=== PATIENT | male | born 1940 | race Caucasian/White ===

== ENCOUNTER 2016-12-26 11:30 | Inpatient (IN) | payer MEDICARE ==
[2017-01-07] MEDS ORDERED: ceFAZolin 1 GM in NORMAL SALINE MINI-BAG+ 100 ML IV PRN ×2 (06:25→09:54)
[2017-01-07] MEDS ORDERED: TRANEXAMIC ACID 1,000 MG in NORMAL SALINE 100 ML IV SCH ×2 (06:25→09:54)
[2017-01-07] MEDS ORDERED: LIDOCAINE HCL 1% 20 ML VIAL SUBCUT PRN ×2 (06:26→09:54)
[2017-01-07] MEDS ORDERED: MIDAZOLAM HCL 2 MG/2 ML SYR IV PRN ×2 (06:26→09:54)
[2017-01-07] MEDS ORDERED: FAMOTIDINE IN SALINE, ISO-OSM 20 MG/50 ML PIGGYBACK IV SCH ×2 (06:30→09:54)
[2017-01-07] MEDS ORDERED: LACTATED RINGERS 1,000 ML IV SCH ×3 (07:00→10:00)
[2017-01-07] MEDS ORDERED: NORMAL SALINE MINI-BAG+ 100 ML IV ONE (07:07)
[2017-01-07] MEDS ORDERED: TRANEXAMIC ACID 1,000 MG/10 ML VIAL IV ONE ×2 (07:07→13:00)
[2017-01-07] MEDS ORDERED: MIDAZOLAM HCL 2 MG/2 ML VIAL ONE (07:08)
[2017-01-07] MEDS ORDERED: BACITRACIN 50,000 UNITS VIAL IM ONE (07:14)
[2017-01-07] MEDS ORDERED: BACITRACIN 14 APP/14 GM TUBE TOPICAL ONE (07:14)
[2017-01-07] MEDS ORDERED: NORMAL SALINE FLUSH 20 ML ONE ×2 (07:15→07:21)
[2017-01-07] MEDS ORDERED: FENTANYL 100 MCG/2 ML VIAL ONE (07:16)
[2017-01-07] MEDS ORDERED: LIDOCAINE HCL 1% 20 ML VIAL ONE (07:16)
[2017-01-07] MEDS ORDERED: MORPHINE SULFATE/PF 10 MG/10 ML VIAL ONE (07:16)
[2017-01-07] MEDS ORDERED: TETRACAINE HCL 1% 20 MG/2 ML AMP ONE (07:17)
[2017-01-07] MEDS ORDERED: BUPIVACAINE/EPI 0.25% 1 VIAL VIAL ONE (07:20)
[2017-01-07] MEDS ORDERED: KETOROLAC TROMETHAMINE 30 MG/ML VIAL ONE (07:22)
[2017-01-07] MEDS ORDERED: ROPIVACAINE HCL 0.5% 30 ML ONE (07:22)
[2017-01-07] MEDS ORDERED: NALBUPHINE HCL 10 MG/ML AMP IV PRN ×2 (09:54→12:03)
[2017-01-07] MEDS ORDERED: DIPHENHYDRAMINE 50 MG/ML VIAL IV PRN ×2 (09:54→12:03)
[2017-01-07] MEDS ORDERED: NALOXONE HCL 0.4 MG/ML VIAL IV PRN ×6 (09:54→12:03)
[2017-01-07] MEDS ORDERED: MORPHINE SULFATE 10 MG/ML SYR IV PRN (09:54)
[2017-01-07] MEDS ORDERED: ONDANSETRON HCL 4 MG/2 ML VIAL IV PRN (09:54)
[2017-01-07] MEDS ORDERED: FENTANYL 100 MCG/2 ML VIAL IV PRN (09:54)
[2017-01-07] MEDS ORDERED: DIPHENHYDRAMINE 25 MG CAPSULE PO PRN ×2 (09:54→12:03)
[2017-01-07] MEDS ORDERED: MORPHINE SULFATE 2 MG/ML SYR IV PRN (10:20)
[2017-01-07] MEDS: ceFAZolin 1 GM in NORMAL SALINE MINI-BAG+ 100 ML IV SCH ×3 (11:15→20:10)
[2017-01-07] MEDS ORDERED: NORMAL SALINE FLUSH 10 ML ONE (11:29)
[2017-01-07] MEDS ORDERED: ceFAZolin 1 GM/10 ML VIAL ONE (11:29)
--- NOTE | 2017-01-07 11:51 | PROCEDURE NOTE: Orthopedics ---
Orthopedic Procedure note - Brief Operative Note Date of procedure: 01/07/17 Pre-Op Diagnosis: Right Knee Prostetic Failure Post-op diagnosis: same Procedure: Right Total Knee Arthreoplsty revison of Unicompartmental Knee Arthroplasty. Implants: Biomet Cement with Gentamicin Ref# [id number] Lot# [id number] Exp: (x2). Synther small frag 4.0MM Cancellous Screw fully threaded. 26mm 206.026 ( x2). Biomet: Vanguard knee system Series_A standard Patella Ref# [id number] Lot# [id number] Exp: . Fixed Cruciate Tibal Plate ref# [id number] Lot# [id number] exp: . PS Open Box Femoral Right Ref# [id number] Lot# [id number] exp: 2024-10. PS Tibal Bearing E1 Ref# [id number] Lot# [id number] Exp: . Bone Cement Ref# [id number] Lot# [id number] Exp: Anesthesia Type: Block/ General Physician: ZONIA BEST Estimated Blood Loss: 300 Total Tourniquet Time (mins): 120 Specimen/Pathology: sent (cultures) Sponge/instrument count: correct X-ray/Fluoroscopy: No Condition: stable Disposition: PACU Narrative: After administrations of anesthesia the right lower extremity was prepped and draped in a sterile fashion after applying a well-padded tourniquet to the right proximal thigh. The incision site was injected with quarter percent bupivacaine with epinephrine prior to incision. The patient's previous medialized anterior longitudinal incision was incorporated into the total knee incision. Dissection was carried down sharply and any small bleeders were cauterized with electrocautery device. A medial parapatellar arthrotomy was performed and a portion of the anterior fat pad and scar tissue was removed. The medial tibial plateau was intact, however the unicompartmental tibial implant was collapsed and angulated.The unicompartmental knee arthroplasty implants were removed with a small osteotome. After removal of any excess cement the case went forward with the total knee arthroplasty. There is no bone removed from the medial aspect of the proximal tibia and all appropriate bone defects are made with a extra medullary guide on the tibia and an intramedullary guide on the femur. Appropriate rotation and valgus settings were dialed into the cutting jigs. The patella was also cut to its appropriate depth. Ranawat blocks were utilized to confirm proper balance both in flexion and extension. Trial implants were inserted and the knee was taken through a range of motion. 2 fully threaded cancellus 3.5 Synthes screws were utilized to reinforce the medial tibial plateau to act as rebar with the cement. An local analgesic block was injected into the soft tissues surrounding the knee. Digitally impacted cement was applied and the final orthopedic implants were inserted. The heel was placed on the Garcia stand and allowed to sit motionless as the cement hardened. The trial implants were removed and all excess cement was removed. The final tibial polyethylene implant was inserted. Throughout the case the knee was copiously irrigated with bacitracin infused normal saline with pulsatile lavage. The knee was closed with #3 FiberWire for the medial parapatellar arthrotomy intermittently with #1 Vicryl. The remainder of the closure was performed with 0 Vicryl followed by 3-0 Vicryl followed by 3-0 Monocryl subcutaneously with a Dermabond skin closure and a Aquacell Ag dressing. The patient was then transferred from the OR suite to the recovery room in stable condition. Implants: 1. Biomet cobalt bone cement with gentamicin 2. Biomet Vanguard PS Open Box Femoral- Right 72.5mm Co-Cr-Mo 3. Biomet Fixed Cruciate Tibial Plate with locking bar 79mm 4. Biomet Vanguard Series-A standard Patella, 37mm, UHMWPE 5. Vanguard PS Tibial Bearing E1 Antioxidant infused UHMWPE 16mm; 79/83mm
[2017-01-07] MEDS ORDERED: TRANEXAMIC ACID 1,000 MG in NORMAL SALINE MINI-BAG+ 100 ML IV ONE (13:00)
[2017-01-07] MEDS: LACTATED RINGERS 1,000 ML IV SCH (14:06)
[2017-01-07] MEDS: ASCORBIC ACID 500 MG TABLET PO SCH ×2 (17:51→20:11)
[2017-01-07] MEDS: FOLIC ACID 1 MG TABLET PO SCH (17:51)
[2017-01-07] MEDS: MULTIVITAMINS THERAPEUTIC 1 TABLET PO SCH (17:51)
[2017-01-08] MEDS: LACTATED RINGERS 1,000 ML IV SCH (02:51)
[2017-01-08] MEDS: ACETAMINOPHEN 325 MG TABLET PO PRN ×3 (03:35→20:46)
[2017-01-08] MEDS: ceFAZolin 1 GM in NORMAL SALINE MINI-BAG+ 100 ML IV SCH (03:35)
[2017-01-08] MEDS ORDERED: ACETAMINOPHEN 325 MG TABLET PO ONE ×2 (03:44→20:54)
[2017-01-08 08:39] LABS: BASOPHILS 0.6 % (0.0-2.0); EOSINOPHILS 1.3 % (0.0-6.0); EOSINOPHILS# 0.1 X 10^3uL (0.0-0.4); HEMATOCRIT 44.8 % (42.0-54.0); HEMOGLOBIN 15.5 g/dL (14.0-18.0); LYMPHOCYTES 11.4 % (20.0-40.0); LYMPHOCYTES# 0.9 X 10^3uL (0.8-3.8); MEAN CELL VOLUME 89.7 fL (80.0-100.0); MEAN CORPUS. HGB CONCENTRATION 34.5 g/dL (32.0-36.0); MEAN PLATELET VOLUME 8.7 fL (7.4-10.4); MONOCYTES 7.7 % (2.0-10.0); MONOCYTES# 0.6 X 10^3uL (0.2-1.0); WHITE BLOOD COUNT 7.6 X 10^3uL (3.9-10.7)
[2017-01-08] MEDS: ASCORBIC ACID 500 MG TABLET PO SCH ×2 (09:02→20:45)
[2017-01-08] MEDS: MULTIVITAMINS THERAPEUTIC 1 TABLET PO SCH (09:02)
[2017-01-08] MEDS: ENOXAPARIN SODIUM 30 MG/0.3 ML SYR SUBCUT SCH ×2 (09:03→20:45)
[2017-01-08] MEDS: FOLIC ACID 1 MG TABLET PO SCH (09:03)
--- NOTE | 2017-01-08 09:16 | RADIOLOGY REPORT ---
Two views of the right knee are compared with prior examination dated 2016. There has been interval total knee arthroplasty. Components appear in appropriate position. No other change is identified. IMPRESSION: Interval right total knee arthroplasty. [facility] [facility]
--- NOTE | 2017-01-08 13:37 | PROGRESS NOTE: Orthopedics ---
Orthopedic PN Subjective - Subjective Principal Diagnosis: s/p Right Total Knee Arthroplasty Post-op Day: 1 Interval history: The patient has been up and ambulating with physical therapy. He is tolerating a regular diet. His pain is well-controlled. He has no complaints. Ortho PN Objective Exam - Latest Vital Signs and I&O Latest Vital Signs/I&O: Vital Signs Temp 36.9 C 01/08/17 11:00 Pulse 76 01/08/17 11:00 Resp 16 01/08/17 11:00 BP 130/72 01/08/17 11:00 Pulse Ox 93 01/08/17 11:00 Intake & Output 01/07/17 01/08/17 01/08/17 17:59 05:59 17:59 Intake Total 2200 906 900 Output Total 1450 750 Balance 750 156 900 Weight 79.379 kg Intake: IV 2150 556 900 Left Wrist 2150 556 900 Oral 50 350 Output: Urine 1450 750 Uretheral (Thomas) 350 Other: Urine Appearance Clear Clear Urine Color Yellow Yellow Uretheral (Thomas) Pale Yellow Voiding Method Indwelling Catheter Indwelling Catheter - Post-Operative Exam Post-op Day: 1 Incision: Present: clean and dry Dressing Status: dry & intact Distal Pulses: +2 Active Motor: intact Sensation: intact Lauren's sign: Negative Calf tenderness: no Weight bearing status: as tolerated - Lab Labs: Laboratory Last Values WBC 7.6 X 10^3uL (3.9-10.7) 01/08/17 08:20 RBC 5.00 X 10^6uL (4.20-6.10) 01/08/17 08:20 Hgb 15.5 g/dL (14.0-18.0) 01/08/17 08:20 Hct 44.8 % (42.0-54.0) 01/08/17 08:20 MCV 89.7 fL (80.0-100.0) 01/08/17 08:20 MCH 31.0 pg (29.0-35.0) 01/08/17 08:20 MCHC 34.5 g/dL (32.0-36.0) 01/08/17 08:20 RDW 12.0 % (11.5-14.5) 01/08/17 08:20 Plt Count 159 X 10^3uL (130-440) 01/08/17 08:20 MPV 8.7 fL (7.4-10.4) 01/08/17 08:20 Neutrophils % 79.0 % (54.0-75.0) H 01/08/17 08:20 Lymphocytes % 11.4 % (20.0-40.0) L 01/08/17 08:20 Eosinophils % 1.3 % (0.0-6.0) 01/08/17 08:20 Basophils % 0.6 % (0.0-2.0) 01/08/17 08:20 Neutrophils # 6.0 X 10^3uL (2.6-6.7) 01/08/17 08:20 Lymphocytes # 0.9 X 10^3uL (0.8-3.8) 01/08/17 08:20 Monocytes 7.7 % (2.0-10.0) 01/08/17 08:20 Monocytes # 0.6 X 10^3uL (0.2-1.0) 01/08/17 08:20 Eosinophils # 0.1 X 10^3uL (0.0-0.4) 01/08/17 08:20 Basophils # 0.0 X 10^3uL (0.0-0.1) 01/08/17 08:20 - Allied Health Notes Allied health notes reviewed: nursing, PT Assessment and Plan-Ortho - Date of Encounter Date of Encounter: 01/08/17 (1) Status post total right knee replacement Status: Acute Assessment and plan: The patient will continue working with physical therapy on his range of motion and strength. DVT prophylaxis. Antibiotic prophylaxis. Oral analgesia. Current Visit: Yes Quality Questions - VTE Prophylaxis Assessment VTE Present on Admission?: No Patient at risk for venous thromboembolism?: Yes VTE Risk Level: High Risk Pharmaceutical VTE prophylaxis contraindication reason: N/A- VTE prophylaxsis ordered Mechanical VTE prophylaxis contraindication reason: N/A- VTE prophylaxsis ordered
[2017-01-08] MEDS ORDERED: FEXOFENADINE HCL 180 MG TABLET PO PRN (13:38)
[2017-01-08] MEDS ORDERED: MUPIROCIN 2% TOPICAL SCH (15:00)
[2017-01-08] MEDS: MUPIROCIN 2% TOPICAL SCH ×2 (20:45→20:58)
[2017-01-08] MEDS: CELECOXIB 100 MG CAPSULE PO SCH (20:46)
[2017-01-08] MEDS: SENNOSIDES/DOCUSATE SODIUM 1 TAB TABLET PO SCH (20:46)
[2017-01-08] MEDS ORDERED: SENNOSIDES/DOCUSATE SODIUM 1 TAB TABLET PO ONE (20:54)
[2017-01-09] MEDS: ACETAMINOPHEN 325 MG TABLET PO PRN (06:08)
[2017-01-09 07:03] LABS: BASOPHILS 0.5 % (0.0-2.0); EOSINOPHILS 1.1 % (0.0-6.0); EOSINOPHILS# 0.1 X 10^3uL (0.0-0.4); HEMATOCRIT 41.8 % (42.0-54.0); HEMOGLOBIN 14.4 g/dL (14.0-18.0); LYMPHOCYTES 8.9 % (20.0-40.0); LYMPHOCYTES# 0.7 X 10^3uL (0.8-3.8); MEAN CELL VOLUME 89.7 fL (80.0-100.0); MEAN CORPUS. HGB CONCENTRATION 34.4 g/dL (32.0-36.0); MEAN CORPUSCULAR HEMOGLOBIN 30.8 pg (29.0-35.0); MEAN PLATELET VOLUME 9.4 fL (7.4-10.4); MONOCYTES 10.8 % (2.0-10.0); MONOCYTES# 0.9 X 10^3uL (0.2-1.0); NEUTROPHILS 78.7 % (54.0-75.0); NEUTROPHILS# 6.5 X 10^3uL (2.6-6.7); RED BLOOD COUNT 4.67 X 10^6uL (4.20-6.10); WHITE BLOOD COUNT 8.2 X 10^3uL (3.9-10.7)
[2017-01-09] MEDS: FOLIC ACID 1 MG TABLET PO SCH (08:10)
[2017-01-09] MEDS: CELECOXIB 100 MG CAPSULE PO SCH ×2 (08:10→20:15)
[2017-01-09] MEDS: MULTIVITAMINS THERAPEUTIC 1 TABLET PO SCH (08:10)
[2017-01-09] MEDS: ASCORBIC ACID 500 MG TABLET PO SCH (08:10)
[2017-01-09] MEDS: ENOXAPARIN SODIUM 30 MG/0.3 ML SYR SUBCUT SCH ×2 (08:10→20:15)
[2017-01-09] MEDS: MUPIROCIN 2% TOPICAL SCH ×2 (08:14→08:45)
--- NOTE | 2017-01-09 08:20 | PROGRESS NOTE: Orthopedics ---
Orthopedic PN Subjective - Subjective Principal Diagnosis: s/p right total knee arthroplasty Post-op Day: 2 Interval history: Patient doing well this AM. Pain controlled with oral analgesia. Up and ambulating with physical therapy. Patient still complaining of inability to extend knee due to quadricep weakness. Still has not had a bowel movement. Ortho PN Objective Exam - Latest Vital Signs and I&O Latest Vital Signs/I&O: Vital Signs Temp 36.7 C 01/09/17 07:00 Pulse 75 01/09/17 07:00 Resp 20 01/09/17 07:00 BP 122/61 01/09/17 07:00 Pulse Ox 90 01/09/17 07:00 Intake & Output 01/08/17 01/09/17 01/09/17 17:59 05:59 17:59 Intake Total 3960 350 Output Total 2900 1100 Balance 1060 -750 Intake: IV 900 Left Wrist 900 Oral 3060 350 Output: Urine 2900 1100 Other: Urine Appearance Clear Clear Urine Color Yellow Pale Yellow Voiding Method Indwelling Catheter Indwelling Catheter - Post-Operative Exam Post-op Day: 2 Incision: Present: clean and dry Dressing Status: dry & intact Distal Pulses: +2 Active Motor: intact Sensation: intact Lauren's sign: Negative Calf tenderness: no Weight bearing status: as tolerated - Lab Labs: Laboratory Last Values WBC 8.2 X 10^3uL (3.9-10.7) 01/09/17 06:10 RBC 4.67 X 10^6uL (4.20-6.10) 01/09/17 06:10 Hgb 14.4 g/dL (14.0-18.0) 01/09/17 06:10 Hct 41.8 % (42.0-54.0) L 01/09/17 06:10 MCV 89.7 fL (80.0-100.0) 01/09/17 06:10 MCH 30.8 pg (29.0-35.0) 01/09/17 06:10 MCHC 34.4 g/dL (32.0-36.0) 01/09/17 06:10 RDW 12.0 % (11.5-14.5) 01/09/17 06:10 Plt Count 143 X 10^3uL (130-440) 01/09/17 06:10 MPV 9.4 fL (7.4-10.4) 01/09/17 06:10 Neutrophils % 78.7 % (54.0-75.0) H 01/09/17 06:10 Lymphocytes % 8.9 % (20.0-40.0) L 01/09/17 06:10 Eosinophils % 1.1 % (0.0-6.0) 01/09/17 06:10 Basophils % 0.5 % (0.0-2.0) 01/09/17 06:10 Neutrophils # 6.5 X 10^3uL (2.6-6.7) 01/09/17 06:10 Lymphocytes # 0.7 X 10^3uL (0.8-3.8) L 01/09/17 06:10 Monocytes 10.8 % (2.0-10.0) H 01/09/17 06:10 Monocytes # 0.9 X 10^3uL (0.2-1.0) 01/09/17 06:10 Eosinophils # 0.1 X 10^3uL (0.0-0.4) 01/09/17 06:10 Basophils # 0.0 X 10^3uL (0.0-0.1) 01/09/17 06:10 - Allied Health Notes Allied health notes reviewed: nursing, PT Assessment and Plan-Ortho - Date of Encounter Date of Encounter: 01/09/17 (1) Status post total right knee replacement Status: Acute Assessment and plan: The patient will continue working with physical therapy on his range of motion and strength. DVT prophylaxis. Oral analgesia. Bowel protocol. Current Visit: Yes
[2017-01-09] MEDS: SENNOSIDES/DOCUSATE SODIUM 1 TAB TABLET PO SCH (20:15)
[2017-01-10] MEDS: ASCORBIC ACID 500 MG TABLET PO SCH ×2 (04:10→09:10)
[2017-01-10 06:19] LABS: BASOPHILS 0.3 % (0.0-2.0); EOSINOPHILS 1.6 % (0.0-6.0); EOSINOPHILS# 0.1 X 10^3uL (0.0-0.4); HEMATOCRIT 38.9 % (42.0-54.0); HEMOGLOBIN 13.2 g/dL (14.0-18.0); LYMPHOCYTES 12.4 % (20.0-40.0); MEAN CELL VOLUME 90.3 fL (80.0-100.0); MEAN CORPUS. HGB CONCENTRATION 33.9 g/dL (32.0-36.0); MEAN CORPUSCULAR HEMOGLOBIN 30.6 pg (29.0-35.0); MEAN PLATELET VOLUME 9.3 fL (7.4-10.4); MONOCYTES 7.9 % (2.0-10.0); MONOCYTES# 0.6 X 10^3uL (0.2-1.0); NEUTROPHILS 77.8 % (54.0-75.0); NEUTROPHILS# 6.5 X 10^3uL (2.6-6.7); RED BLOOD COUNT 4.31 X 10^6uL (4.20-6.10); RED CELL DISTRIBUTION WIDTH 12.1 % (11.5-14.5); WHITE BLOOD COUNT 8.2 X 10^3uL (3.9-10.7)
[2017-01-10 08:21] VITALS: O2SAT 92
[2017-01-10] MEDS: CELECOXIB 100 MG CAPSULE PO SCH (09:09)
[2017-01-10] MEDS: FOLIC ACID 1 MG TABLET PO SCH (09:10)
[2017-01-10] MEDS: MULTIVITAMINS THERAPEUTIC 1 TABLET PO SCH (09:10)
[2017-01-10] MEDS: ENOXAPARIN SODIUM 30 MG/0.3 ML SYR SUBCUT SCH (09:10)
[2017-01-10 11:38] VITALS: BP 128/70; PULSE 90; RESP 20; TEMP 99.1
--- NOTE | 2017-01-10 13:26 | DC SUMMARY: Orthopedic Note ---
Discharge Summary: Surg/OB Provider: Date of Admission: 01/07/17 Admitting Provider: ZONIA BEST DO Attending Provider: ZONIA BEST DO Discharging Provider: ZONIA BEST DO Primary Care Provider: Discharge Date: 01/10/17 - Diagnosis (1) Status post total right knee replacement Status: Acute Hospital Course: Mr. SRIVASTAVA is a 76 year old male patient underwent a total knee arthroplasty for a failed unicompartmental arthroplasty. The patient's postoperative course was well with him receiving appropriate postoperative DVT and antibiotic prophylaxis. He was ambulating well physical therapy. His pain is well-controlled. He is tolerating a regular diet. Discharge - Patient/Caregiver Discharge Instructions Activity Level: wbat Diet: reg Overall discharge status: stable Home Medications: Enoxaparin Sodium [LOVENOX 30mg/0.3mL*] 30 mg SUBCUT BID #22 syr hydroCODone/APAP 5/325 MG [HYDROCODONE/APAP 5mg/325mg*] 1 tab PO Q6H PRN #30 tab PRN Reason: Pain, Severe Orders: Outpatient Physical Therapy Eval & Treat Location: Determined By Patient Disposition: HOME, SELF-CARE Orthopedic: Discharge Phy Exam - Latest Vital Signs and I&O Latest Vital Signs/I&O: Vital Signs Temp 37.3 C 01/10/17 11:00 Pulse 90 01/10/17 11:00 Resp 20 01/10/17 11:00 BP 128/70 01/10/17 11:00 Pulse Ox 92 01/10/17 11:00 Intake & Output 01/09/17 01/10/17 01/10/17 17:59 05:59 17:59 Intake Total 1350 400 Output Total 210 400 Balance 1140 0 Intake: Oral 1350 400 Output: Urine 210 400 Other: Urine Appearance Clear Clear Clear Urine Color Yellow Yellow Yellow Voiding Method Toilet Toilet Toilet - Post-Operative Exam Post-op Day: 3 Incision: Present: clean and dry Dressing Status: changed Drainage Amount: minimal Drainage Description: serosanguineous Distal Pulses: +2 Active Motor: intact Sensation: intact Lauren's sign: Negative Calf tenderness: no Weight bearing status: as tolerated - Allied Health Notes Allied health notes reviewed: nursing, PT Discharge Summary Data - Medication History Medication History: Home Medications Fexofenadine HCl [Fexofenadine HCl*] 180 mg PO DAILY PRN 01/07/17 Multivitamins,Therapeutic [Thera] 1 udtab PO DAILY 01/07/17 Mupirocin 2% Oint [Bactroban 2% Topical Ointment*] 1 suzette TOPICAL TID 01/07/17 aspirin EC [Aspirin EC*] 81 mg PO DAILY 01/08/17 Inpatient Medications 01/07/17 12:03 Ascorbic Acid [Vitamin C] 500 mg PO BID Folic Acid [Folate] 1 mg PO DAILY Lactated Ringers [Lr 1000 ml Bag] 1,000 ml IV CONT Multivitamins,Therapeutic [Thera] 1 tab PO DAILY hydroMORPHone HCL [dilaUDID] 2 mg PO Q4H PRN oxyCODONE HCL IR [Oxy Ir] 5 - 10 mg PO Q3H PRN 01/08/17 09:00 Enoxaparin Sodium [Lovenox] 30 mg SUBCUT BID 01/08/17 13:38 Fexofenadine HCl [Sharon] 180 mg PO DAILY PRN 01/08/17 20:21 Acetaminophen [Tylenol] 650 mg PO Q6H PRN 01/08/17 21:00 Celecoxib [CeleBREX] 100 mg PO WITH BRKFST AND DINN Sennosides/Docusate Sodium [Delmy-Colace] 2 tab PO HS Procedures and tests throughout hospitalization: Completed Lab Orders 01/07/17 08:00 ANAEROBIC CULTURE [SEND] Routine 01/07/17 08:15 ANAEROBIC CULTURE [SEND] Routine 01/08/17 08:20 CBC AUTO DIF, MDIF/RMOR IF IND [HEM] AMDRAW 01/09/17 06:10 CBC AUTO DIF, MDIF/RMOR IF IND [HEM] AMDRAW 01/10/17 05:40 CBC AUTO DIF, MDIF/RMOR IF IND [HEM] AMDRAW Completed Imaging Orders 01/07/17 12:24 KNEE; 1 [address] [place] [id number] [RAD] Routine Completed Microbiology Orders 01/07/17 08:00 WOUND CULTURE AND GRAM STAIN [RM] Routine 01/07/17 08:15 WOUND CULTURE AND GRAM STAIN [RM] Routine Pending Orders 01/06/17 18:22 Resuscitation Status Routine 01/07/17 06:26 Insert Peripheral IV ONCE 01/07/17 08:00 AFB CULTURE [SORM] Routine 01/07/17 09:54 Maurice hugger if temp <34 C PRN Did pt have a spinal/epidural? . Maintain IV access post spinal CONTINUOUS Monitor End Tidal CO2 CONTINUOUS Narcan @ bedside x24h after sp .x24hrs Notify Anesthesia . Oxygen by Nasal Cannula TITRATE TO >90% Titrate Oxygen TITRATE B/W 90-95% Vital Signs Q1HX12,Q2H Warm blankets if temp<36 C PRN 01/07/17 12:03 Admit: Inpatient Routine Activity: Ambulate with Assist TID Activity: BRP w/ Assist Only . Activity: FWB USE WALKER Activity: Knee Extension . Activity: Up to Chair TID Apply ice to affected area PRN Clinical Pathway: updt in cht QSHIFT Did pt have a spinal/epidural? . Incentive Spirometry Q1H Intake and Output QSHIFT I&O Notify Physician . Oxygen by Nasal Cannula TITRATE TO >90% Sequential Compression Device WHILE IN BED FREYA Hose CONTINUOUS Titrate Oxygen TITRATE TO >90% Turn, Cough, and Deep Breathe Q2H Vital Signs ROUTINE VITALS (Q4H) Molecular Spectroscopist Consult [CM] Routine Ascorbic Acid [Vitamin C] 500 mg PO BID Folic Acid [Folate] 1 mg PO DAILY Lactated Ringers [Lr 1000 ml Bag] 1,000 ml IV CONT Multivitamins,Therapeutic [Thera] 1 tab PO DAILY hydroMORPHone HCL [dilaUDID] 2 mg PO Q4H PRN oxyCODONE HCL IR [Oxy Ir] 5 - 10 mg PO Q3H PRN 01/07/17 Lunch Regular [DIET] 01/08/17 09:00 Enoxaparin Sodium [Lovenox] 30 mg SUBCUT BID 01/08/17 10:31 Physical Therapy Plan of Care [PT] Routine 01/08/17 13:38 Fexofenadine HCl [Sharon] 180 mg PO DAILY PRN 01/08/17 19:39 Activity: CPM . 01/08/17 20:21 Acetaminophen [Tylenol] 650 mg PO Q6H PRN 01/08/17 21:00 Celecoxib [CeleBREX] 100 mg PO WITH BRKFST AND DINN Sennosides/Docusate Sodium [Delmy-Colace] 2 tab PO HS 01/09/17 09:00 OCCULT BLOOD (1-3 SAMPLES) [RM] Labs on day of discharge: Labs from last 24 hours 01/10/17 05:40 WBC 8.2 RBC 4.31 Hgb 13.2 L Hct 38.9 L MCV 90.3 MCH 30.6 MCHC 33.9 RDW 12.1 Plt Count 153 MPV 9.3 Neutrophils % 77.8 H Lymphocytes % 12.4 L Eosinophils % 1.6 Basophils % 0.3 Neutrophils # 6.5 Lymphocytes # 1.0 Monocytes 7.9 Monocytes # 0.6 Eosinophils # 0.1 Basophils # 0.0 - Additional Comments the patient will be discharged home with Lovenox twice a day. He will begin home physical therapy. Follow up at about 8 days postoperative.
--- NOTE | 2017-01-24 13:45 | PREOPERATIVE H&P ---
History of Present Illness (Leander Portillo ; 12/07/2016 12:32 PM) The patient is a 76 year old male. Patient presents complaining of persistent right knee pain. He is also noticed a change in his leg alignment. He experiences instability whenever he stands up and begins to walk. He was doing very well following his surgery but suddenly started to have a change in the angulation of his knee and instability. He was seen previously in the office and was noted that he had collapse of his medial tibial plateau. The unicompartmental knee arthroplasty. He has been doing a home physical therapy program working on his range of motion and strengthening. Allergies (Katie Gonzales, LUCIO; 12/07/2016 10:31 AM) Zocor Hives Vicodin GI Distress Lipitor Elevated CPK Family History (Katie Gonzales RN; 12/07/2016 10:31 AM) Paternal Grandfather @ 98 of Old Age No Significant Family Ocular History Mother @ 83 of Old Age Father @ 85 of Old Age Social History (Katie Gonzales RN; 12/07/2016 10:31 AM) Tobacco use Former smoker. Quit 1966 15-20 pack years Alcohol Use Drinks Socially. Medication History (Katie Gonzales RN; 12/07/2016 10:31 AM) Aleve (220MG Capsule, 1 tab Oral as needed) Active. Aspirin (81MG Tablet, 1 Oral daily) Active. Medications Reconciled Review of Systems (Leander Portillo ; 12/07/2016 12:32 PM) General Not Present- Chills and Fever. Skin Not Present- Erythema, Skin Color Changes and Skin Problems. HEENT Not Present- Sleep Apnea. Neck Not Present- Neck Pain. Respiratory Not Present- Cough and Shortness of Breath. Cardiovascular Not Present- Chest Pain, Difficulty Breathing On Exertion, Fainting and Leg Pain and/or Swelling. Gastrointestinal Not Present- Abdominal Pain, Nausea and Vomiting. Male Genitourinary Not Present- Painful Urination and Urethral Discharge. Musculoskeletal Not Present- Decreased Range of Motion, Joint Pain, Joint Stiffness, Joint Swelling, Muscle Pain and Muscle Weakness. Neurological Not Present- Dizziness, Focal Neurological Symptoms, Numbness in extremities, Trouble walking and Weakness. Psychiatric Not Present- Anorexia, Anxiety and Depression. Endocrine Not Present- Weight Loss. Hematology Not Present- Bleeding Problems, DVT and Easy Bruising. Vitals (Katie Gonzales RN; 12/07/2016 10:30 AM) 12/07/2016 10:30 AM Temp.: 98.2F Pulse: 100 (Regular) Resp.: 16 (Unlabored) BP: 134/66 (Sitting, Left Arm, Standard) Physical Exam (Leander Portillo DO; 12/07/2016 12:33 PM) The physical exam findings are as follows: Note:Physical examination of the right knee demonstrates positive medial swelling. Positive tenderness palpation medially. Positive varus alignment. The peripheral neurovascular status is intact with normal sensation and adequate perfusion. Plain film x-rays with orthogonal views demonstrate good positioning of the femoral component, however the tibial component has tilted medially and has subsided and collapse of the tibial plateau medially. 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 He is concerned about someone helping him out at home. He will get back to us about the surgical date but for now, tentatively, he plans on 31 December. Signed by Leander Portillo DO (12/07/2016 12:35 PM) Pt. examined at bedside and no interval changes noted. Signed Leander Portillo DO 01/07/2017. DIMAS
== END 2017-01-10 13:31 | disposition home or self-care (01) | DRG 470 ==
LOC: IN 01-07 05:58
PROVIDERS: ADMIT Orthopaedic Surgery; ATTEND Orthopaedic Surgery
PROC: 0SRC0J9 Replacement of Right Knee Joint with Synthetic Substitute, Cemented, Open Approach (ICD-10-PCS; principal; 2017-01-07)
PROC: 0QPD04Z Removal of Internal Fixation Device from Right Patella, Open Approach (ICD-10-PCS; principal; 2017-01-07)
DX: T84.012A Broken internal right knee prosthesis, initial encounter (principal); Y83.8 Other surgical procedures as the cause of abnormal reaction of the patient, or of later complication, without mention of misadventure at the time of the procedure; I10 Essential (primary) hypertension; E78.5 Hyperlipidemia, unspecified; M15.9 Polyosteoarthritis, unspecified; Z22.322 Carrier or suspected carrier of Methicillin resistant Staphylococcus aureus; K29.70 Gastritis, unspecified, without bleeding; Z79.899 Other long term (current) drug therapy
CPT/HCPCS: 36415; 85025; 87070; 87075; 87116; 87205; 94668; C1713; C1776; J0171; J0690; J1650; J1885; J2250; J2270; J2795; J3010; J7120